=== PATIENT | male | born 1975 | race Caucasian/White ===

== ENCOUNTER 2023-10-30 06:23 | Day surgery (SDC) | payer OTHER ==
[~2023-10-30] VITALS: Ht 170.2 cm; Wt 105.7 kg
[2023-10-30] MEDS ORDERED: fentaNYL CITRATE/PF 100 MCG/2 ML AMP ONE (07:20)
[2023-10-30] MEDS ORDERED: MIDAZOLAM HCL 2 MG/2 ML VIAL (VERSED) ONE (07:20)
[2023-10-30] MEDS ORDERED: DESFLURANE 15 MIN GAS INH ONE (07:35)
[2023-10-30] MEDS ORDERED: WATER FOR IRRIGATION,STERILE 1,000 ML IRRIG.SOLN IR ONE (07:35)
[2023-10-30] MEDS ORDERED: LR 1,000 ML IV.SOLN IV ONE (07:35)
[2023-10-30] MEDS ORDERED: NS IRRIG SOLN 5000 ML IR ONE (07:35)
[2023-10-30] MEDS ORDERED: ONDANSETRON HCL 4 MG/2 ML VIAL ONE (07:35)
[2023-10-30] MEDS ORDERED: KETOROLAC TROMETHAMINE 30 MG VIAL ONE (07:35)
[2023-10-30] MEDS ORDERED: PROPOFOL 200MG/ 20ML VIAL (DIPRIVAN) IV ONE (07:35)
[2023-10-30 07:50] VITALS: O2SAT 98
[2023-10-30] MEDS ORDERED: HYDROmorphone 1 MG/ML INJ. CARTRIDGE IVP PRN ×3 (09:00)
[2023-10-30] MEDS ORDERED: hydrALAZINE HCL 20 MG/ML VIAL IV PRN (09:00)
[2023-10-30] MEDS ORDERED: NALOXONE HCL 0.4 MG/ML AMP (NARCAN) IVP PRN (09:00)
[2023-10-30] MEDS ORDERED: ONDANSETRON HCL 4 MG/2 ML VIAL IVP PRN (09:00)
[2023-10-30] MEDS: cefTRIAXone 1 GM IVPB PREMIX 50 ML IV ONE (09:00)
[2023-10-30 15:34] VITALS: BP_SYST 132; PULSE 66; RESP 18
== END 2023-10-30 11:48 | disposition home or self-care (01) ==
LOC: SDS 06:23 → SMU 06:28 → SDS 11:48
PROVIDERS: ATTEND Urology
DX: N35.919 Unspecified urethral stricture, male, unspecified site (principal); E66.9 Obesity, unspecified; Z68.36 Body mass index [BMI] 36.0-36.9, adult
CPT/HCPCS: 52281; 87081; J0696; J1885; J3465; J2405; J2704; J3010; J7120